=== PATIENT | female | born 1955 | race Caucasian/White ===

== ENCOUNTER → 2017-01-24 | Outpatient (CLI) | payer OTHER ==
[~2017-01-24] MED LIST: ACET650T10 PO; ALPR.25 PO; BUPR300T PO; CALC600T10 PO; FISHCAP PO; HYDR12.56 PO; LISI-363 PO; OXYC1SOL5 PO; RIVA10 PO; SENN8.6T8 PO; Z.0.COMMODE-3:1; Z.0.WALKERFRONT; [UNRECOGNIZED DRUG - OTHER] PO
== END ==
LOC: PLAB 11:13
PROVIDERS: ATTEND Family Medicine
DX: I10 Essential (primary) hypertension (principal)
CPT/HCPCS: 80048